=== PATIENT | male | born 1990 | race Two or more races ===

== ENCOUNTER 2021-02-15 10:25 | Emergency (ER) | payer BC, OTHER ==
[~2021-02-15] VITALS: Ht 175.3 cm; Wt 93.0 kg
[2021-02-15] MEDS ORDERED: HYDROmorphone HCL 2 MG/ML VL IV ONE ×3 (11:15→16:00)
[2021-02-15] MEDS ORDERED: ONDANSETRON HCL 4 MG/2 ML VIAL IV ONE (11:15)
[2021-02-15] MEDS ORDERED: HYDROmorphone HCL 2 MG/ML VL ONE (13:03)
[2021-02-15] MEDS ORDERED: SODIUM CHLORIDE 0.9% 1,000 ML IV ONE (13:15)
[2021-02-15] MEDS ORDERED: ceFAZolin 1GM/50ML 100 ML IV ONE (13:15)
[2021-02-15 16:52] VITALS: BP 119/75
[2021-02-15] MEDS ORDERED: KETOROLAC TROMETH 30 MG/ML 1ML VIAL ONE (17:29)
[2021-02-15] MEDS ORDERED: KETOROLAC TROMETH 30 MG/ML 1ML VIAL IV ONE (17:45)
== END 2021-02-16 02:48 | disposition short-term general hospital (02) ==
LOC: EDBD 10:25 → ER 10:25
DX: S52.502B Unspecified fracture of the lower end of left radius, initial encounter for open fracture type I or II (principal); S52.202B Unspecified fracture of shaft of left ulna, initial encounter for open fracture type I or II; V89.2XXA Person injured in unspecified motor-vehicle accident, traffic, initial encounter; Y93.89 Activity, other specified; Y92.89 Other specified places as the place of occurrence of the external cause; Y99.8 Other external cause status
CPT/HCPCS: 73090; 96365; 96375; 96376; 99285; J0690; J1170; J1885; J2405; J7030